=== PATIENT | female | born 1945 | race Caucasian/White ===

== ENCOUNTER 2016-12-04 12:46 | Inpatient (IN) ==
[2016-12-04] MEDS ORDERED: MORPHINE 2 MG/1 ML SYRINGE IV STA ×2 (13:22→14:19)
[2016-12-04] MEDS ORDERED: ONDANSETRON 4 MG/2 ML VIAL IV STA (13:22)
[2016-12-04] MEDS ORDERED: MORPHINE 2 MG/1 ML SYRINGE ONE ×2 (13:24→14:26)
[2016-12-04] MEDS ORDERED: ONDANSETRON 4 MG/2 ML VIAL ONE (13:24)
--- NOTE | 2016-12-04 13:29 | XRay Report ---
XR chest 1V portable Indication: Respiratory preoperative evaluation Comparison: None available Findings: The heart and mediastinum are normal in size and configuration. The pulmonary vascularity is normal in caliber. No lung infiltrates, effusions, pneumothorax or other abnormality is demonstrated. Impression: No acute cardiopulmonary findings. PROCEDURE INTERPRETED AT [facility] DEPARTMENT OF RADIOLOGY Final Report Signed by: Dr. Geo Huff
--- NOTE | 2016-12-04 13:31 | XRay Report ---
XR hip 2v w pelvis LT Indication: Pain after falling injury Comparison: None available Findings: There is fracture of the left femoral neck. There is proximal migration of the femur. No other fracture seen. No other acute injury identified. Impression: Femoral neck fracture as described above. PROCEDURE INTERPRETED AT [facility] DEPARTMENT OF RADIOLOGY Final Report Signed by: Dr. Geo Huff
--- NOTE | 2016-12-04 13:42 | Emergency Department Note ---
Antony Lemos Manpreet, am scribing for, and in the presence of, Christian Encinas MD 13:21. Huang Lemos Phillip K, MD, personally performed the services described in this documentation, ascribed by Jose Miguel Hardy in my presence, and it is both accurate and complete [id number] . Arrival - Arrival Chief Complaint: Fall Stated Complaint: fall, left hip pain ED Nursing Triage Note: PT TRIPPED AND FELL LAST NIGHT. C/O LEFT HIP PAIN. SHORTENING NOTED TO LLE. PT UNABLE TO BEAR WEIGHT. FENTANYL GIVEN PER EMS Mode of Arrival: Stretcher Limitations: No Limitations Source: Patient - History of Present Illness HPI Narrative: Pt is a 71 y/o female who presents to the ED s/p tripping over a box and falling last night. The pt c/o left hip and pelvis pain and states he son found her this AM. Pt was given Fentanyl en route to the ED via EMS. No other pains/ complaints reported to the ED. Onset (ago): hour(s) (Last night) Consistency: constant Severity: moderate Quality: aching Allergies/Adverse Reactions: Allergies Allergy/AdvReac Type Severity Reaction Status Date / Time ciprofloxacin [From Cipro] Allergy Unknown/Unable Unverified 12/04/16 12:50 to obtain Home Medications: Home Medications Medication Instructions Recorded Confirmed Type Aspirin EC Tab 81 mg PO DAILY 12/04/16 12/04/16 History Baclofen Tab [Lioresal] 10 mg PO BEDTIME 12/04/16 12/04/16 History FLUoxetine [PROzac] 20 mg PO DAILY 12/04/16 12/04/16 History Furosemide Tab [Lasix Tab] 40 mg PO DAILY 12/04/16 12/04/16 History Pregabalin [Lyrica] 300 mg PO BID 12/04/16 12/04/16 History Tizanidine HCl [Zanaflex] 4 mg PO BID 12/04/16 12/04/16 History Review of System - Review of System 12 point system: reviewed and no additional remarkable complaints except as stated - Review of System Constitutional: Absent: chills, diaphoresis, fever Head/Ears/Nose/Throat: Absent: sore throat Respiratory: Absent: cough, respiratory distress Cardiovascular: Absent: chest pain Gastrointestinal: Absent: abdominal pain, nausea, vomiting Genitourinary female: Absent: dysuria Musculoskeletal: Present: leg pain (Left hip pain), other (Pelvic pain). Absent : back pain Neurological: Absent: headache, weakness Medical,Surgical,& Family Hx - Medical History Endocrine: History of: Diabetes Mellitus (NIDDM) Rheumatology: History of;: Fibromyalgia - Social History Smoking Status: Never smoker Frequency of Alcohol Use: None Type of Drug Use: None Exam Vital Signs: Vital Signs Temperature 98.0 F 12/04/16 12:47 Pulse Rate 98 H 12/04/16 12:47 Respiratory Rate 18 12/04/16 12:47 Blood Pressure 143/87 12/04/16 12:47 O2 Sat by Pulse Oximetry 92 L 12/04/16 12:47 - General General appearance: alert - Head Head exam: Present: atraumatic, normocephalic, normal inspection - Eye Eye exam: Present: normal appearance, PERRL, EOMI - ENT ENT exam: Present: normal exam, normal oropharynx, mucous membranes moist, TM's normal bilaterally - Neck Neck exam: Present: normal inspection, full ROM, trachea midline. Absent: tenderness, thyromegaly - Chest Chest inspection: Present: normal inspection, symmetric chest wall rise. Absent : tenderness - Respiratory Respiratory exam: Present: normal lung sounds bilaterally. Absent: accessory muscle use, respiratory distress - Cardiovascular Cardiovascular exam: Present: regular rate, normal rhythm, normal heart sounds. Absent: murmur, rubs, gallop - Abdominal Exam Abdominal exam: Present: soft, normal bowel sounds. Absent: distention, diminished bowel sounds - Extremities Exam Extremities exam: Absent: normal inspection - Expanded Lower Left Lower Hip/Pelvis exam: Present: external rotation, shortening. Absent: normal inspection, full ROM - Back Exam Back exam: Present: normal inspection, full ROM. Absent: tenderness - Neurological Exam Neurological exam: Present: alert, oriented X3, CN II-XII intact, reflexes normal - Psychiatric Psychiatric exam: Present: normal affect, normal mood - Skin Skin exam: Present: warm, dry, intact, normal color. Absent: pallor Course Course Narrative: Patient discussed with Dr. Nicolas who will repair of the fracture tomorrow. Patient wants her admitted to the hospitalist. Results - Labs CBC & BMP: 12/04/16 13:46 12/04/16 13:46 Lab Results: I have reviewed the patients labs Labs: Laboratory Tests 12/04/16 12/04/16 12/04/16 13:46 13:46 13:46 WBC 13.3 H RBC 4.55 Hgb 13.4 Hct 39.8 MCV 87.5 MCH 30 MCHC 33.7 RDW 15.4 Plt Count 199 MPV 11.1 Neut % (Auto) 80.4 H Lymph % (Auto) 10.8 L Neut # (Auto) 10.7 H Jay # (Auto) 1.0 H INR 1.1 PT Patient/Control Mix 11.2 Circ Anticoag PTT 29.1 Sodium 139 Potassium 4.3 Chloride 104 Carbon Dioxide 29 Anion Gap 10.3 BUN 16 Creatinine 1.00 GFR Calculation 62 BUN/Creatinine Ratio 16.00 Globulin 3.8 H Albumin/Globulin Ratio 1.0 L Laboratory Tests 12/04/16 13:46 Urine pH 7.0 Ur Specific [place] 1.009 Urine Urobilinogen < 2.0 H Urine RBC <1 Urine WBC 1 Hyaline Casts 2 - EKG EKG results: interpreted by ERMD, WNL, sinus rhythm - Diagnostic Findings Procedure: Chest x-ray: report reviewed by me (No acute cardiopulmonary findings.), X-ray: report reviewed by me (X-ray Hip: Femoral neck fracture as described above.) Disposition Clinical Impression: Subcapital fracture of neck of left femur Case discussed with: patient Disposition: Still a Patient Condition: Guarded
[2016-12-04 13:51] LABS: Basophils % 0.2 % (0.0-0.8); Eosinophils % 0.2 % (0.00-10.9); Hematocrit 39.8 VOL% (35.7-47.0); Hemoglobin 13.4 GM/DL (12.0-16.0); Immature Granulocytes % 0.6 %; Immature Granulocytes Absolute 0.08 #; Lymphocytes # 1.4 10*3/uL (1.4-4.0); Lymphocytes % 10.8 % (21.3-54.2); Mean Corpuscular HGB Conc 33.7 GM/DL (32-36); Mean Corpuscular Hemoglobin 30 PG (27-34); Mean Corpuscular Volume 87.5 FL (87-102); Mean Platelet Volume 11.1 FL (9.6-12.0); Monocytes % 7.8 % (1.7-12.7); Neutrophils # 10.7 10*3/uL (1.4-7.4); Neutrophils % 80.4 % (38.7-73.9); Platelet Count 199 T/CUMM (130-400); Red Blood Count 4.55 MC/CUMM (3.8-5.5); Red Cell Distribution Width 15.4 % (9.3-17.3); White Blood Count 13.3 T/CUMM (4-12)
[2016-12-04 14:02] LABS: Apearance,Urine CLEAR (Clear); Bilirubin,Urine Negative (Negative); Blood, Urine Negative (Negative); Glucose,Urine (UA) Negative (Negative); Hyaline Casts,Urine 2 /LPF (0-3); Ketones,Urine Negative (Negative); Nitrite,Urine Negative (Negative); Protein,Urine Negative; RBC,Urine <1 /HPF (0-4); Squamous Epithelial Cell,Urine Occasional /HPF (0-10); Urine Color Yellow (Yellow); Urine Specific Gravity 1.009 (1.001-1.035); Urine Urobilinogen < 2.0 EU/DL (0.2-1.0); WBC,Urine 1 /HPF (0-6)
[2016-12-04 14:04] LABS: INR 1.1; PT Patient Result 11.2 SECS; Partial Thromboplastin Time 29.1 SECS (0-40)
[2016-12-04 14:18] LABS: Bilirubin,Total 0.8 MG/DL (0.2-1.0); Calcium 9.7 MG/DL (8.5-10.1); Osmolality,Calculated 277.5 MOS/KG (273-304); Potassium 4.3 MMOL/L (3.5-5.1); Total Protein 7.8 G/DL (6.4-8.3)
--- NOTE | 2016-12-04 14:30 | EKG Report ---
Stationary ECG Study [facility] ER Test Date: 12/04/2016 1:34:26 PM Pat Name: KYLER ADORNO Department: Room: EDREG Gender: F Skid[employer] Runner: : 1945 Requested by: Christian Nugent Order Number: [id number] Reading MD: ADINA SHERIDAN Intervals [place] Rate: 91 P: 29 IN: 171 QRS: 82 QRSD: 109 T: 102 QT: 364 QTc: 413 Interpretive Statements SINUS RHYTHM IVCD Electronically Signed On 12-04-16 20:19:38 CDT by ADINA SHERIDAN [email or web address]
--- NOTE | 2016-12-04 14:34 | Hospitalist History & Physical ---
Assessment and Plan (1) Subcapital fracture of neck of left femur Status: Acute Assessment and plan: due to fall. Orthopedic wants to take to surgery in am Follow recommendations Current Visit: Yes (2) IDDM (insulin dependent diabetes mellitus) Status: Acute Assessment and plan: she will placed on SSC and accu cheks -will start clear liquids -HbA1c level Current Visit: Yes (3) Fibromyalgia Status: Acute Assessment and plan: will manage with home meds Current Visit: Yes (4) Dehydration Status: Acute Assessment and plan: start IVF hydration Current Visit: Yes History of Present Illness Chief complaint: fall resulting in left hip pain History of present illness: Ms. Ariza is a 71 year old female with a history NIDDM, chronic pain , fibromyalgia who lives alone.She was planning to move in with her son so she decided to have a garage sale at her house. While preparing for the sale,she tripped over a box yesterday and fell down resulting in a left hip pain.She denies hitting her head on the floor.She was helped by someone on the chair thinking that the pain would go away. She later realized that she couldn't move and she had to sit up on the chair all night long.She couldnt reach her phone and didnt take anything by mouth. Family members tried to reach her this am to no avail so they drove about 45mins to her house where she was found sitting up on a chair.She denies any nausea, vomiting, no chest pain and chest tightness. EMS gave her Fetanyl en route to the ER. Upon arrival,Xray showed a fracture of the left femoral neck.CXR showed no acute changes. Orthopedic has been consulted and she is being planned for surgery in am.She currently complains of pain around the hip and she looks dry. We will start hydrating her ,continue pain meds and admit her for further care. Home Medications Medication Instructions Recorded Confirmed Type Aspirin EC Tab 81 mg PO DAILY 12/04/16 12/04/16 History Baclofen Tab [Lioresal] 10 mg PO BEDTIME 12/04/16 12/04/16 History FLUoxetine [PROzac] 20 mg PO DAILY 12/04/16 12/04/16 History Furosemide Tab [Lasix Tab] 40 mg PO DAILY 12/04/16 12/04/16 History Pregabalin [Lyrica] 300 mg PO BID 12/04/16 12/04/16 History Tizanidine HCl [Zanaflex] 4 mg PO BID 12/04/16 12/04/16 History Allergies Allergy/AdvReac Type Severity Reaction Status Date / Time ciprofloxacin [From Cipro] Allergy Unknown/Unable Unverified 12/04/16 12:50 to obtain Medical,Surgical,& Family Hx - Medical History Endocrine: History of: Diabetes Mellitus (NIDDM) Rheumatology: History of;: Fibromyalgia - Social History Smoking Status: Never smoker Frequency of Alcohol Use: None Type of Drug Use: None 12 point system: reviewed and no additional remarkable complaints except as stated Exam - Constitutional Vitals: Period Temp Pulse Resp BP Sys/Soto Pulse Ox Last 24 Hr 98.0 F-98.0 F 98-98 18-18 133-143/87-87 92 General appearance: no acute distress, other (dry) - Head Head exam: Present: normal inspection - Respiratory Respiratory exam: Present: clear to auscultation bilaterally - Cardiovascular Cardiovascular exam: Present: regular rate and rhythm - GI/Abdominal GI/Abdominal exam: Present: normal bowel sounds - Extremities Exam Extremities exam: Present: other (left leg deviation) Results - Labs CBC & BMP: 12/04/16 13:46 12/04/16 13:46 Lab Results: I have reviewed the past 24 hour labs
[2016-12-04] MEDS ORDERED: GLUCAGON 1 MG VIAL IM PRN (16:09)
[2016-12-04] MEDS ORDERED: DEXTROSE 50% 25 GM/50 ML SYRINGE IV PRN (16:09)
[2016-12-04] MEDS ORDERED: ONDANSETRON 4 MG/2 ML VIAL IV PRN (16:09)
[2016-12-04] MEDS ORDERED: MORPHINE 2 MG/1 ML SYRINGE IV PRN ×2 (16:09→17:13)
[2016-12-04] MEDS ORDERED: ACETAMINOPHEN 325 MG TABLET PO PRN (16:09)
[2016-12-04] MEDS: SODIUM CHLORIDE 0.9% 1,000 ML IV SCH (16:45)
--- NOTE | 2016-12-04 17:12 | Orthopedic Consult Note ---
History of Present Illness Chief complaint: Left hip pain History of present illness: Ms. Ariza is a 71 year old female who fell last night after getting caught between boxes. She was unable to ambulate and was assisted to a chair last night. Because of persistent pain, her other son and [id number] checked on her and brought her to the emergency room. She has not had any previous history of hip problems. 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 She has received injections in these locations in the past. She has had left foot reconstructive surgery for a stress fracture in the past. She denies any other injury or new numbness or tingling. Left lower extremity shortened and externally rotated. She can flex extend her toes and ankle. Previous incisions are well-healed and faint. She has a palpable osteophyte over her medial midfoot. She has palpable pulses. Radiographs AP pelvis and AP lateral left hip demonstrate a displaced femoral neck fracture. Impression: Left displaced femoral neck fracture Plan: I discussed operative options which include total hip replacement versus hemiarthroplasty. They wish to pursue a total hip arthroplasty. Risks include but not limited to infection, bleeding, anesthesia, loosening, wear, dislocation , leg length discrepancy, need for further operations, thromboembolic event, , etc. We will plan proceeding in the morning. Home Medications Medication Instructions Recorded Confirmed Type Aspirin EC Tab 81 mg PO DAILY 12/04/16 12/04/16 History Baclofen Tab [Lioresal] 10 mg PO BEDTIME 12/04/16 12/04/16 History FLUoxetine [PROzac] 20 mg PO DAILY 12/04/16 12/04/16 History Furosemide Tab [Lasix Tab] 40 mg PO DAILY 12/04/16 12/04/16 History Pregabalin [Lyrica] 300 mg PO BID 12/04/16 12/04/16 History Tizanidine HCl [Zanaflex] 4 mg PO BID 12/04/16 12/04/16 History Allergies Allergy/AdvReac Type Severity Reaction Status Date / Time ciprofloxacin [From Cipro] Allergy Unknown/Unable Unverified 12/04/16 12:50 to obtain 12 point system: reviewed and no additional remarkable complaints except as stated Medical,Surgical,& Family Hx - Medical History Endocrine: History of: Diabetes Mellitus (NIDDM) Rheumatology: History of;: Fibromyalgia - Surgical History HEENT Surgeries: Surgical HX of: Tonsilectomy & Adenoidectomy Abdominal Surgeries: Surgical HX of: Cholecystectomy Reproductive Surgeries: Surgical HX of;: Hysterectomy Orthopedic Surgeries: Surgical HX of;: Orthopedic Surgery (Left rotator cuff repair) - Family History Family History: Reports;: Family Cancer, Family Diabetes, Family Heart Disease - Social History Smoking Status: Current every day smoker Frequency of Alcohol Use: None Type of Drug Use: None Exam - Constitutional Vitals: Period Temp Pulse Resp BP Sys/Soto Pulse Ox Last 24 Hr 98.0 F-98.3 F 92-98 18-20 114-143/73-87 92-97 Results - Labs CBC & BMP: 12/04/16 13:46 12/04/16 13:46 Assessment and Plan (1) Subcapital fracture of neck of left femur Status: Acute Current Visit: Yes Qualifiers: Encounter type: initial encounter Fracture type: closed Qualified Code(s) : S72.012A - Unspecified intracapsular fracture of left femur, initial encounter for closed fracture
[2016-12-04 17:43] LABS: Albumin 3.8 G/DL (3.4-5.0); Bilirubin,Total 1.4 MG/DL (0.2-1.0); Calcium 9.4 MG/DL (8.5-10.1); Osmolality,Calculated 276.5 MOS/KG (273-304); Potassium 4.1 MMOL/L (3.5-5.1); Thyroid Stimulating Hormone 0.671 uIU/ml (0.358-3.74); Total Protein 7.3 G/DL (6.4-8.3)
[2016-12-04 17:44] LABS: Apearance,Urine CLEAR (Clear); Bilirubin,Urine Negative (Negative); Blood, Urine Negative (Negative); Glucose,Urine (UA) Negative (Negative); Ketones,Urine Negative (Negative); Nitrite,Urine Negative (Negative); Protein,Urine Negative; RBC,Urine 1 /HPF (0-4); Squamous Epithelial Cell,Urine Occasional /HPF (0-10); Urine Color Yellow (Yellow); Urine Specific Gravity 1.009 (1.001-1.035); Urine Urobilinogen < 2.0 EU/DL (0.2-1.0); WBC,Urine 1 /HPF (0-6)
[2016-12-04] MEDS: INSULIN REGULAR 100 UNIT/ML SUBCUT SCH (18:46)
[2016-12-04] MEDS: MORPHINE 2 MG/1 ML SYRINGE IV PRN (21:14)
[2016-12-05] MEDS: INSULIN REGULAR 100 UNIT/ML SUBCUT SCH ×4 (00:55→18:33)
[2016-12-05] MEDS: MORPHINE 2 MG/1 ML SYRINGE IV PRN ×2 (03:03→21:24)
[2016-12-05] MEDS: SODIUM CHLORIDE 0.9% 1,000 ML IV SCH (05:00)
[2016-12-05 05:20] LABS: Basophils % 0.4 % (0.0-0.8); Eosinophils # 0.1 10*3/uL (0.0-0.87); Eosinophils % 1.8 % (0.00-10.9); Hematocrit 34.7 VOL% (35.7-47.0); Hemoglobin 11.2 GM/DL (12.0-16.0); Immature Granulocytes % 0.5 %; Immature Granulocytes Absolute 0.04 #; Lymphocytes % 27.1 % (21.3-54.2); Mean Corpuscular HGB Conc 32.3 GM/DL (32-36); Mean Corpuscular Hemoglobin 29 PG (27-34); Mean Corpuscular Volume 90.4 FL (87-102); Mean Platelet Volume 11.8 FL (9.6-12.0); Monocytes # 0.9 10*3/uL (0.11-0.8); Neutrophils # 4.3 10*3/uL (1.4-7.4); Neutrophils % 58.2 % (38.7-73.9); Platelet Count 171 T/CUMM (130-400); Red Blood Count 3.84 MC/CUMM (3.8-5.5); Red Cell Distribution Width 15.5 % (9.3-17.3); White Blood Count 7.4 T/CUMM (4-12)
[2016-12-05 05:47] LABS: Albumin 3.3 G/DL (3.4-5.0); Bilirubin,Total 0.8 MG/DL (0.2-1.0); Calcium 9.2 MG/DL (8.5-10.1); Osmolality,Calculated 284.1 MOS/KG (273-304); Potassium 4.6 MMOL/L (3.5-5.1); Total Protein 6.5 G/DL (6.4-8.3)
[2016-12-05] MEDS ORDERED: VANCOMYCIN INJ 1,000 MG in SODIUM CHLORIDE 0.9% 250 ML IV ONE (06:00)
[2016-12-05] MEDS ORDERED: ceFAZolin 2,000 MG in PREMIX 1 EACH IV ONE (06:00)
--- NOTE | 2016-12-05 07:37 | Orthopedic Progress Note ---
Assessment and Plan (1) Subcapital fracture of neck of left femur Status: Acute Current Visit: Yes Qualifiers: Encounter type: initial encounter Fracture type: closed Qualified Code(s) : S72.012A - Unspecified intracapsular fracture of left femur, initial encounter for closed fracture Orthopedics - Subjective Interval history: Ms. Ariza is more comfortable this morning. She still complaining of left inguinal pain. She is also requesting a sleeper. Exam left lower extremity is unchanged. The limb is shortened and externally rotated. She can flex extend her toes and ankles. Sensation is grossly intact light touch. All questions were answered. Proceed with a left total hip arthroplasty. Exam - Constitutional Vitals: Period Temp Pulse Resp BP Sys/Soto Pulse Ox Last 24 Hr 96.3 F-98.3 F 85-104 18-20 91-143/57-87 91-97 Results - Labs CBC & BMP: 12/05/16 04:17 12/05/16 04:16 Quality Measures - VTE Contraindication to Pharmacological VTE Prophylaxis: High Risk of Bleeding
[2016-12-05] MEDS ORDERED: TRANEXAMIC ACID 1,000 MG/10 ML VIAL IV ONE (08:10)
[2016-12-05] MEDS ORDERED: PROPOFOL 200 MG/20 ML VIAL IV ONE ×2 (08:10→14:43)
[2016-12-05] MEDS ORDERED: LIDOCAINE 2% 5 ML VIAL ONE (08:10)
[2016-12-05] MEDS ORDERED: MAGNESIUM HYDROXIDE SUSP 30 ML UDCUP PO PRN (08:39)
--- NOTE | 2016-12-05 08:42 | Operative Note ---
Procedure: DIAGNOSIS: Left displaced femoral neck fracture. Degenerative tendinopathy gluteus medius PROCEDURE: Left total hip arthroplasty (CPT#02961) SURGEON: Maria Isabel ANESTHESIA: Spinal PROCEDURE and FINDINGS: After adequate anesthesia was induced, the patient was placed in lateral decubitus position. Left lower extremities prepped and draped in usual sterile fashion. Posteriolateral approach to the hip was made. Skin, subcutaneous tissue and deep fascia was incised longitudinally. Gluteus josef muscle belly was split in line with its fibers. Her gluteus medius tendon demonstrated degenerative changes with fraying and enthesophytes off of the greater trochanter. Piriformis, external rotators and capsule were taken down as a single layer as an inverted L shaped capsulotomy. Hip was dislocated. Templated femoral neck cut was made. Acetabulum was prepared by sequentially reaming to 49 mm. A 50 mm Continuum acetabular shell was press- fit with excellent stability. 1 6.5 millimeter screw was placed with an excellent bite. 32 mm elevated rim longevity liner was placed with a dome hole plug. Femur was prepared sequentially with the box osteotome, canal finder and sequential broaches to 14. Components were trialed. A size 14 Versys Advocate stem was cemented in place using Palacos cement and modern cementing techniques. A distal centralizer and cement restrictor were used. A 32+3.5 mm head was placed. The component was stable posteriorly and anteriorly. Capsule was repaired with #5 Tycron suture to the greater trochanter. Deep fascia was closed with 0 Vicryl [id number] suture. Subcutaneous tissue was closed deep with a 2-0 Vicryl runner and superficially with 3-0 interrupted buried sutures. Skin was closed with nitin. Bacitracin and a sterile occlusive dressing was applied. Surgeon / Physician: Shane Nicolas Jr. Results - Labs CBC & BMP: 12/05/16 04:17 12/05/16 04:16 Discharge Plan - Discharge Medications No Action Baclofen Tab [Lioresal] 10 mg PO BEDTIME Pregabalin [Lyrica] 300 mg PO BID FLUoxetine [PROzac] 20 mg PO DAILY Aspirin EC Tab 81 mg PO DAILY Furosemide Tab [Lasix Tab] 40 mg PO DAILY Tizanidine HCl [Zanaflex] 4 mg PO BID - Follow Up or Referral - Forms/Instructions
[2016-12-05] MEDS: DOCUSATE SODIUM 100 MG CAPSULE PO SCH ×2 (09:00→21:27)
[2016-12-05] MEDS: tiZANidine 4 MG TABLET PO SCH ×2 (09:00→21:27)
[2016-12-05] MEDS: LACTATED RINGERS 1,000 ML IV SCH ×3 (09:00→22:04)
[2016-12-05] MEDS: PREGABALIN 100 MG CAPSULE PO SCH ×2 (09:00→21:26)
[2016-12-05] MEDS ORDERED: BALANCED SALT IRRIG SOLN 15 ML BOTTLE ONE (11:48)
--- NOTE | 2016-12-05 13:27 | Hospitalist Progress Note ---
Assessment and Plan (1) S/P total hip arthroplasty Status: Acute Assessment and plan: The patient has had total hip arthroplasty on the left after fracture. There are no apparent surgical complications noted. We will recheck electrolytes and CBC in the morning. Current Visit: Yes Qualifiers: Laterality: left Qualified Code(s): Z96.642 - Presence of left artificial hip joint (2) Subcapital fracture of neck of left femur Status: Acute Current Visit: Yes Qualifiers: Encounter type: initial encounter Fracture type: closed Qualified Code(s) : S72.012A - Unspecified intracapsular fracture of left femur, initial encounter for closed fracture Hospitalist: Subjective Interval history: The patient has returned from surgery. The patient had left total hip arthroplasty on account of left hip fracture. There were no apparent surgical complications. Exam - Constitutional Vitals: Period Temp Pulse Resp BP Sys/Soto Pulse Ox Last 24 Hr 96.3 F-98.6 F 82-104 16-20 90-119/55-82 91-100 General appearance: mild distress - Respiratory Respiratory exam: Present: clear to auscultation bilaterally - Cardiovascular Cardiovascular exam: Present: regular rate and rhythm Results - Labs CBC & BMP: 12/05/16 04:17 12/05/16 04:16 Lab Results: I have reviewed the past 24 hour labs Quality Measures - VTE Contraindication to Pharmacological VTE Prophylaxis: High Risk of Bleeding
--- NOTE | 2016-12-05 13:43 | XRay Report ---
XR hip 1V LT Indication: Hip arthroplasty Comparison: 04 December 2016 Findings: Left hip arthroplasty has been performed and appears within normal limits for positioning. No periprosthetic fracture seen. Impression: Hip arthroplasty as described above. PROCEDURE INTERPRETED AT [facility] DEPARTMENT OF RADIOLOGY Final Report Signed by: Dr. Geo Huff
[2016-12-05] MEDS: ceFAZolin 2,000 MG in PREMIX 1 EACH IV SCH ×2 (14:27→21:23)
[2016-12-05] MEDS: ACETAMINOPHEN 500 MG TABLET PO SCH ×2 (14:28→19:25)
[2016-12-05] MEDS: PANTOPRAZOLE 40 MG TABLET PO SCH (14:29)
[2016-12-05] MEDS: FLUoxetine 20 MG CAPSULE PO SCH (14:29)
[2016-12-05] MEDS: FUROSEMIDE 40 MG TABLET PO SCH (14:29)
[2016-12-05] MEDS ORDERED: MIDAZOLAM 2 MG/2 ML VIAL ONE (14:43)
[2016-12-05] MEDS ORDERED: KETAMINE 500 MG/10 ML VIAL ONE (14:44)
[2016-12-05] MEDS ORDERED: MORPHINE 2 MG/1 ML SYRINGE IV ONE (14:48)
--- NOTE | 2016-12-05 14:53 | Orthopedic Progress Note ---
Assessment and Plan (1) Subcapital fracture of neck of left femur Status: Acute Current Visit: Yes Qualifiers: Encounter type: initial encounter Fracture type: closed Qualified Code(s) : S72.012A - Unspecified intracapsular fracture of left femur, initial encounter for closed fracture Orthopedics - Subjective Interval history: Ms. Ariza is complaining of pain. Ms Ariza has chronic pain and I've been told that she was committed earlier this year for opioid dependence. Her son and [id number] are concerned that she has relapsed and that is a contributing factor to her fall and delay in presentation. Her dressing is clean, dry and intact. Her right lower extremities neurovascularly unchanged. Plan: We will bolus her with 4 mg morphine 1 now. I discussed with the patient that she will have some difficulty with pain. Dr. Dunaway will see her this weekend. Exam - Constitutional Vitals: Period Temp Pulse Resp BP Sys/Soto Pulse Ox Last 24 Hr 96.3 F-98.6 F 82-104 16-20 90-119/55-82 91-100 Results - Labs CBC & BMP: 12/05/16 04:17 12/05/16 04:16 Quality Measures - VTE Contraindication to Pharmacological VTE Prophylaxis: High Risk of Bleeding
--- NOTE | 2016-12-05 15:30 | Anesthesia Post-Op ---
Anesthesia Post OP - Post Ansesthetic Evaluation Patient seen in post op: Yes Resp: within normal limits CV: within normal limits Mental: within normal limits Temp: within normal limits [id number]: within normal limits Nausea and Vomiting: within normal limits Pain: within normal limits
[2016-12-05] MEDS: KETOROLAC 15 MG/1 ML VIAL IV SCH ×2 (17:28→21:25)
[2016-12-05] MEDS: ZALEPLON 5 MG CAPSULE PO PRN (21:27)
[2016-12-05] MEDS: BACLOFEN 10 MG TABLET PO SCH (21:27)
[2016-12-06] MEDS: ACETAMINOPHEN 500 MG TABLET PO SCH ×2 (00:37→05:59)
[2016-12-06] MEDS: INSULIN REGULAR 100 UNIT/ML SUBCUT SCH ×4 (00:38→18:58)
[2016-12-06] MEDS: FONDAPARINUX 2.5 MG/0.5 ML SYRINGE SUBCUT SCH ×2 (02:28→03:35)
[2016-12-06] MEDS: KETOROLAC 15 MG/1 ML VIAL IV SCH ×2 (02:28→10:05)
[2016-12-06 03:28] LABS: Basophils % 0.2 % (0.0-0.8); Eosinophils # 0.1 10*3/uL (0.0-0.87); Eosinophils % 1.2 % (0.00-10.9); Hematocrit 30.5 VOL% (35.7-47.0); Hemoglobin 9.9 GM/DL (12.0-16.0); Immature Granulocytes % 0.8 %; Immature Granulocytes Absolute 0.08 #; Lymphocytes # 1.7 10*3/uL (1.4-4.0); Lymphocytes % 16.8 % (21.3-54.2); Mean Corpuscular HGB Conc 32.5 GM/DL (32-36); Mean Corpuscular Hemoglobin 29 PG (27-34); Mean Corpuscular Volume 89.4 FL (87-102); Mean Platelet Volume 11.9 FL (9.6-12.0); Monocytes % 9.6 % (1.7-12.7); Neutrophils # 7.2 10*3/uL (1.4-7.4); Neutrophils % 71.4 % (38.7-73.9); Platelet Count 162 T/CUMM (130-400); Red Blood Count 3.41 MC/CUMM (3.8-5.5); Red Cell Distribution Width 15.3 % (9.3-17.3)
[2016-12-06 03:43] LABS: Magnesium 2.1 MG/DL (1.8-2.4); Osmolality,Calculated 280.4 MOS/KG (273-304)
[2016-12-06 03:47] LABS: Calcium 8.8 MG/DL (8.5-10.1); Osmolality,Calculated 283.3 MOS/KG (273-304)
[2016-12-06] MEDS: LACTATED RINGERS 1,000 ML IV SCH ×3 (06:32→21:29)
[2016-12-06] MEDS ORDERED: DEXTROSE 50% 25 GM/50 ML SYRINGE IV PRN (07:43)
[2016-12-06] MEDS ORDERED: GLUCAGON 1 MG VIAL IM PRN (07:43)
--- NOTE | 2016-12-06 08:09 | Orthopedic Progress Note ---
Orthopedics - Subjective Interval history: Somnolent. Oned day postop left total hip for subcapital femoral neck fx Stable. Dressing clean and dry lab: reviewed. Rec: No change in previously placed orthopaedic orders Exam - Constitutional Vitals: Period Temp Pulse Resp BP Sys/Soto Pulse Ox Last 24 Hr 97.1 F-98.6 F 82-117 16-20 79-136/50-82 92-100 Results - Labs CBC & BMP: 12/06/16 02:47 12/06/16 02:47 Quality Measures - VTE Contraindication to Pharmacological VTE Prophylaxis: High Risk of Bleeding
[2016-12-06] MEDS: DOCUSATE SODIUM 100 MG CAPSULE PO SCH ×2 (08:38→21:28)
[2016-12-06] MEDS: FUROSEMIDE 40 MG TABLET PO SCH (08:38)
[2016-12-06] MEDS: FLUoxetine 20 MG CAPSULE PO SCH (08:39)
[2016-12-06] MEDS: tiZANidine 4 MG TABLET PO SCH ×2 (08:39→21:28)
[2016-12-06] MEDS: PREGABALIN 100 MG CAPSULE PO SCH ×2 (08:39→21:27)
[2016-12-06] MEDS: PANTOPRAZOLE 40 MG TABLET PO SCH (08:39)
[2016-12-06] MEDS ORDERED: KETOROLAC 15 MG/1 ML VIAL IV SCH (10:00)
--- NOTE | 2016-12-06 10:51 | Hospitalist Progress Note ---
Assessment and Plan (1) S/P total hip arthroplasty Status: Acute Assessment and plan: The patient has had total hip arthroplasty on the left after fracture. There are no apparent surgical complications noted. We will recheck electrolytes and CBC in the morning. Current Visit: Yes Qualifiers: Laterality: left Qualified Code(s): Z96.642 - Presence of left artificial hip joint (2) Subcapital fracture of neck of left femur Status: Acute Current Visit: Yes Qualifiers: Encounter type: initial encounter Fracture type: closed Qualified Code(s) : S72.012A - Unspecified intracapsular fracture of left femur, initial encounter for closed fracture Hospitalist: Subjective Interval history: The patient is on standard postoperative pathway. There were no new symptoms today. The patient denies angina or shortness of breath. Exam - Constitutional Vitals: Period Temp Pulse Resp BP Sys/Soto Pulse Ox Last 24 Hr 97.1 F-98.6 F 82-117 16-20 79-136/50-82 92-100 General appearance: no acute distress - Respiratory Respiratory exam: Present: clear to auscultation bilaterally - Cardiovascular Cardiovascular exam: Present: regular rate and rhythm - GI/Abdominal GI/Abdominal exam: Present: normal bowel sounds Results - Labs CBC & BMP: 12/06/16 02:47 12/06/16 02:47 Lab Results: I have reviewed the past 24 hour labs Quality Measures - VTE Contraindication to Pharmacological VTE Prophylaxis: High Risk of Bleeding
[2016-12-06] MEDS ORDERED: SODIUM CHLORIDE 0.9% 500 ML IV ONE (14:08)
[2016-12-06 15:47] LABS: Hematocrit 26.1 VOL% (35.7-47.0); Hemoglobin 8.5 GM/DL (12.0-16.0)
[2016-12-06] MEDS: BACLOFEN 10 MG TABLET PO SCH (21:28)
[2016-12-07] MEDS: INSULIN REGULAR 100 UNIT/ML SUBCUT SCH ×4 (00:50→18:48)
[2016-12-07] MEDS: LACTATED RINGERS 1,000 ML IV SCH ×4 (03:00→23:23)
[2016-12-07 03:17] LABS: Basophils % 0.2 % (0.0-0.8); Eosinophils # 0.2 10*3/uL (0.0-0.87); Eosinophils % 2.4 % (0.00-10.9); Hematocrit 23.4 VOL% (35.7-47.0); Hemoglobin 7.7 GM/DL (12.0-16.0); Immature Granulocytes % 0.4 %; Immature Granulocytes Absolute 0.04 #; Lymphocytes # 1.9 10*3/uL (1.4-4.0); Lymphocytes % 20.4 % (21.3-54.2); Mean Corpuscular HGB Conc 32.9 GM/DL (32-36); Mean Corpuscular Hemoglobin 29 PG (27-34); Mean Corpuscular Volume 89.3 FL (87-102); Monocytes # 1.1 10*3/uL (0.11-0.8); Monocytes % 11.4 % (1.7-12.7); Neutrophils % 65.2 % (38.7-73.9); Platelet Count 127 T/CUMM (130-400); Red Blood Count 2.62 MC/CUMM (3.8-5.5); Red Cell Distribution Width 15.2 % (9.3-17.3); White Blood Count 9.3 T/CUMM (4-12)
[2016-12-07] MEDS: FONDAPARINUX 2.5 MG/0.5 ML SYRINGE SUBCUT SCH (03:20)
[2016-12-07 03:45] LABS: Magnesium 1.8 MG/DL (1.8-2.4); Osmolality,Calculated 284.3 MOS/KG (273-304); Potassium 3.8 MMOL/L (3.5-5.1)
[2016-12-07 04:36] LABS: Platelet Estimate Normal
[2016-12-07] MEDS: FLUoxetine 20 MG CAPSULE PO SCH (09:53)
[2016-12-07] MEDS: PREGABALIN 100 MG CAPSULE PO SCH ×2 (09:53→22:31)
[2016-12-07] MEDS: PANTOPRAZOLE 40 MG TABLET PO SCH (09:53)
[2016-12-07] MEDS: DOCUSATE SODIUM 100 MG CAPSULE PO SCH ×2 (09:53→22:31)
[2016-12-07] MEDS: tiZANidine 4 MG TABLET PO SCH ×2 (09:54→22:32)
--- NOTE | 2016-12-07 10:25 | Orthopedic Progress Note ---
Orthopedics - Subjective Interval history: She is postoperative day 2 for left total hip replacement for treatment of a displaced left femoral neck fracture. The patient is alert and oriented. Pain is under control. There has been a significant decrease in her hematocrit. I am in touch with Dr. Gonzalez. He is going to go ahead and order 2 units of packed red blood cells. Recommendations: 1 continue same orthopedic orders. 2. Dr. Gonzalezis handling her blood transfusion Exam - Constitutional Vitals: Period Temp Pulse Resp BP Sys/Soto Pulse Ox Last 24 Hr 97.5 F-99.8 F 71-100 18-18 75-109/31-55 85-95 Results - Labs CBC & BMP: 12/07/16 02:23 12/07/16 02:23 Quality Measures - VTE Contraindication to Pharmacological VTE Prophylaxis: High Risk of Bleeding
--- NOTE | 2016-12-07 12:07 | Hospitalist Progress Note ---
Assessment and Plan (1) S/P total hip arthroplasty Status: Acute Assessment and plan: The patient has had total hip arthroplasty on the left after fracture. There are no apparent surgical complications noted. The patient will have 2 units packed red blood cell transfusion today we will recheck laboratories tomorrow. She seems ready for transfer to [facility]. Current Visit: Yes Qualifiers: Laterality: left Qualified Code(s): Z96.642 - Presence of left artificial hip joint (2) Subcapital fracture of neck of left femur Status: Acute Current Visit: Yes Qualifiers: Encounter type: initial encounter Fracture type: closed Qualified Code(s) : S72.012A - Unspecified intracapsular fracture of left femur, initial encounter for closed fracture Hospitalist: Subjective Interval history: This is a 71-year-old lady we admitted after left hip fracture. The surgery has been uneventful and the patient wishes to go to [facility] rehab. The patient required transfusion on Thursday. Exam - Constitutional Vitals: Period Temp Pulse Resp BP Sys/Soto Pulse Ox Last 24 Hr 97.5 F-99.8 F 71-100 18-18 82-109/31-55 85-95 General appearance: no acute distress - Respiratory Respiratory exam: Present: clear to auscultation bilaterally - Cardiovascular Cardiovascular exam: Present: regular rate and rhythm - GI/Abdominal GI/Abdominal exam: Present: normal bowel sounds Results - Labs CBC & BMP: 12/07/16 02:23 12/07/16 02:23 Lab Results: I have reviewed the past 24 hour labs Quality Measures - VTE Contraindication to Pharmacological VTE Prophylaxis: High Risk of Bleeding
[2016-12-07] MEDS: SODIUM CHLORIDE 0.9% 250 ML IV PRN ×2 (17:45→21:19)
[2016-12-07] MEDS: BACLOFEN 10 MG TABLET PO SCH (22:32)
[2016-12-08] MEDS: INSULIN REGULAR 100 UNIT/ML SUBCUT SCH ×4 (00:22→18:07)
[2016-12-08] MEDS: FONDAPARINUX 2.5 MG/0.5 ML SYRINGE SUBCUT SCH (03:49)
[2016-12-08 04:53] LABS: Basophils % 0.5 % (0.0-0.8); Eosinophils # 0.3 10*3/uL (0.0-0.87); Eosinophils % 2.9 % (0.00-10.9); Hematocrit 27.2 VOL% (35.7-47.0); Immature Granulocytes % 0.6 %; Immature Granulocytes Absolute 0.05 #; Lymphocytes # 1.9 10*3/uL (1.4-4.0); Lymphocytes % 22.2 % (21.3-54.2); Mean Corpuscular HGB Conc 33.1 GM/DL (32-36); Mean Corpuscular Hemoglobin 29 PG (27-34); Mean Corpuscular Volume 88.6 FL (87-102); Mean Platelet Volume 11.6 FL (9.6-12.0); Monocytes % 11.4 % (1.7-12.7); Neutrophils # 5.3 10*3/uL (1.4-7.4); Neutrophils % 62.4 % (38.7-73.9); Platelet Count 149 T/CUMM (130-400); Red Blood Count 3.07 MC/CUMM (3.8-5.5); Red Cell Distribution Width 15.2 % (9.3-17.3); White Blood Count 8.5 T/CUMM (4-12)
[2016-12-08 05:28] LABS: Calcium 8.1 MG/DL (8.5-10.1); Magnesium 1.9 MG/DL (1.8-2.4); Osmolality,Calculated 281.4 MOS/KG (273-304)
[2016-12-08 06:12] LABS: Anisocytosis 2+; Eosinophils 4 % (0-10); Lymphocytes 22 % (20-55); Macrocytosis 2+; Platelet Estimate Adequate; Polychromasia 1+; Segmented Neutrophils 64 % (50-85); Total Cells Counted 100
--- NOTE | 2016-12-08 08:51 | Orthopedic Progress Note ---
Assessment and Plan (1) Subcapital fracture of neck of left femur Status: Acute Current Visit: Yes Qualifiers: Encounter type: initial encounter Fracture type: closed Qualified Code(s) : S72.012A - Unspecified intracapsular fracture of left femur, initial encounter for closed fracture Orthopedics - Subjective Interval history: Ms. Ariza feels significantly better. She has been able to walk in the room a short distance. Her dressing is clean, dry and intact. Left lower extremities neurovascularly unchanged. Plan: May be discharged to [facility] at any point from my standpoint. Posterior hip precautions for 3 months. Daily dry dressing changes. Arrange for walker and bedside commode for home use. Wear ANISH hose for 1 month. Follow-up appointment in 4 weeks. Discontinue nitin and Steri-Strip wound on December 17, 2016. Prescription for Nutrioso 7.5 was written. Stop Arixtra when discharged from [facility]. Resume aspirin 81 mg then. Exam - Constitutional Vitals: Period Temp Pulse Resp BP Sys/Soto Pulse Ox Last 24 Hr 97.1 F-99.9 F 71-91 18-20 85-119/46-69 91-98 Results - Labs CBC & BMP: 12/08/16 04:21 12/08/16 04:21 Quality Measures - VTE Contraindication to Pharmacological VTE Prophylaxis: High Risk of Bleeding Specialty Discharge - Follow Up or Referrals Follow up with: Shane Nicolas Jr., MD [Physician] - 01/07/17 8:45 am
[2016-12-08] MEDS: DOCUSATE SODIUM 100 MG CAPSULE PO SCH ×2 (09:10→20:06)
[2016-12-08] MEDS: FLUoxetine 20 MG CAPSULE PO SCH (09:10)
[2016-12-08] MEDS: PREGABALIN 100 MG CAPSULE PO SCH ×2 (09:10→20:06)
[2016-12-08] MEDS: tiZANidine 4 MG TABLET PO SCH ×2 (09:10→20:06)
[2016-12-08] MEDS: PANTOPRAZOLE 40 MG TABLET PO SCH (09:11)
[2016-12-08] MEDS ORDERED: BISACODYL 5 MG TABLET PO ONE (09:30)
[2016-12-08] MEDS ORDERED: POLYETHYLENE GLYCOL POWDER 255 GM BOTTLE PO ONE (09:31)
--- NOTE | 2016-12-08 09:57 | Discharge Summary ---
Hospital Course - Hospital Course Hospital Course: Ms. Ariza is a 71 year old female with a history NIDDM, chronic pain , fibromyalgia tripped over a box yesterday and sustained left femur subcapital fracture. Dr. Nicolas did a total left hip arthroplasty on December 05, 2016. Patient tolerated surgery well. She will be transferred to [facility] today. She has chronic problems with constipation and usually takes 20 mg of Dulcolax as needed as needed. Patient's hemoglobin A1c was 6.7 and blood sugars are controlled without medication. Patient will stay on Arixtra until discharge for [facility] rehab. Once discharged from [facility] rehab patient to resume her 81 mg aspirin. Discharged to [facility] today. - Time spent with patient Time with patient DS: Greater than 30 minutes (45 minutes) Specialty Discharge - Follow Up or Referrals Follow up with: Shane Nicolas Jr., MD [Physician] - 01/07/17 8:45 am Discharge Plan - Discharge Data Disposition: Disch/Xfer- Rehab Fac Condition at Discharge: Stable Discharge Diet: diabetic diet Activity: as per physical therapy Hygiene: no restrictions - Discharge Medications New Dextrose 50% [D50] 25 gm IV PRN PRN syringe PRN Reason: Hypoglycemia with IV access Glucagon 1 mg IM PRN PRN vial PRN Reason: Hypoglycemia w/o IV access HYDROcodone/ACETAMIN 7.5-325 [[place] 7.5-325] 2 tablet PO Q4H PRN tablet PRN Reason: Pain Moderate (4-7) Insulin Regular [HumuLIN R] See Protocol SUBCUT Q6HR unit Magnesium Hydroxide Susp [Milk of Magnesia] 30 ml PO Q6H PRN PRN Reason: Constipation Pantoprazole Tab [Protonix Tab] 40 mg PO DAILY tablet Bisacodyl Tab [Dulcolax Tab] 20 mg PO DAILY PRN #30 tablet PRN Reason: Constipation Acetaminophen Tab [Tylenol Tab] 325 mg PO Q4H PRN tablet PRN Reason: fever, headache/body aches Fondaparinux [Arixtra] 2.5 mg SUBCUT Q24H syringe HYDROcodone/ACETAMIN 7.5-325 [[place] 7.5-325] 1 tablet PO Q4H PRN tablet PRN Reason: Pain Moderate (4-7) Continue Baclofen Tab [Lioresal] 10 mg PO BEDTIME Pregabalin [Lyrica] 300 mg PO BID FLUoxetine [PROzac] 20 mg PO DAILY Furosemide Tab [Lasix Tab] 40 mg PO DAILY Tizanidine HCl [Zanaflex] 4 mg PO BID Discontinued Aspirin EC Tab 81 mg PO DAILY - Follow Up or Referral Follow Up: Shane Nicolas Jr., MD [Physician] - 01/07/17 8:45 am - Forms/Instructions Additional Discharge Instructions: Resume aspirin 81 mg p.o. daily when discharged from [facility]. Just continue Arixtra when discharged from [facility] Exam - Constitutional Vitals: Period Temp Pulse Resp BP Sys/Soto Pulse Ox Last 24 Hr 97.1 F-99.9 F 71-91 18-20 85-119/46-69 91-98 General appearance: no acute distress, over weight - Respiratory Respiratory exam: Present: clear to auscultation bilaterally. Absent: rhonchi, wheezes - Cardiovascular Cardiovascular exam: Present: regular rate and rhythm. Absent: systolic murmur - GI/Abdominal GI/Abdominal exam: Present: normal bowel sounds, soft. Absent: tenderness Discharge Results Procedures and tests throughout hospitalization: Pending Orders 12/04/16 16:28 Blood Culture Routine Labs on day of discharge: Labs from last 24 hours 12/08/16 12/08/16 12/08/16 05:27 04:21 04:21 WBC 8.5 RBC 3.07 L Hgb 9.0 L Hct 27.2 L MCV 88.6 MCH 29 MCHC 33.1 RDW 15.2 Plt Count 149 MPV 11.6 Neut % (Auto) 62.4 Lymph % (Auto) 22.2 [place] % (Auto) 11.4 Eos % (Auto) 2.9 Baso % (Auto) 0.5 Neut # (Auto) 5.3 Lymph # (Auto) 1.9 [place] # (Auto) 1.0 H Eos # (Auto) 0.3 Baso # (Auto) 0.0 Total Counted 100 Immature Gran % 0.6 Nucleated RBC % 0.0 Immature Gran # 0.05 Segmented Neutrophils 64 Lymphocytes 22 Monocytes 10 Eosinophils 4 Nucleated RBCs # 0.00 Platelet Estimate Adequate Immature Plt Fraction 0.0 Polychromasia 1+ Anisocytosis 2+ Macrocytosis 2+ Sodium 140 Potassium 4.0 Chloride 107 Carbon Dioxide 26 Anion Gap 11.0 BUN 17 Creatinine 0.90 GFR Calculation 72 BUN/Creatinine Ratio 18.00 Glucose 119 H POC Glucose 117 H Calculated Osmolality 281.4 Calcium 8.1 L Magnesium 1.9 Blood Type Antibody Screen Crossmatch 12/07/16 12/07/16 12/07/16 23:15 18:08 10:54 WBC RBC Hgb Hct MCV MCH MCHC RDW Plt Count MPV Neut % (Auto) Lymph % (Auto) [place] % (Auto) Eos % (Auto) Baso % (Auto) Neut # (Auto) Lymph # (Auto) [place] # (Auto) Eos # (Auto) Baso # (Auto) Total Counted Immature Gran % Nucleated RBC % Immature Gran # Segmented Neutrophils Lymphocytes Monocytes Eosinophils Nucleated RBCs # Platelet Estimate Immature Plt Fraction Polychromasia Anisocytosis Macrocytosis Sodium Potassium Chloride Carbon Dioxide Anion Gap BUN Creatinine GFR Calculation BUN/Creatinine Ratio Glucose POC Glucose 171 H 181 H 142 H Calculated Osmolality Calcium Magnesium Blood Type Antibody Screen Crossmatch 12/07/16 02:23 WBC RBC Hgb Hct MCV MCH MCHC RDW Plt Count MPV Neut % (Auto) Lymph % (Auto) [place] % (Auto) Eos % (Auto) Baso % (Auto) Neut # (Auto) Lymph # (Auto) [place] # (Auto) Eos # (Auto) Baso # (Auto) Total Counted Immature Gran % Nucleated RBC % Immature Gran # Segmented Neutrophils Lymphocytes Monocytes Eosinophils Nucleated RBCs # Platelet Estimate Immature Plt Fraction Polychromasia Anisocytosis Macrocytosis Sodium Potassium Chloride Carbon Dioxide Anion Gap BUN Creatinine GFR Calculation BUN/Creatinine Ratio Glucose POC Glucose Calculated Osmolality Calcium Magnesium Blood Type O POSITIVE Antibody Screen Negative Crossmatch See Detail Preliminary micro results at discharge 12/04/16 16:28 Blood Culture - Preliminary Blood No growth at 3 days 12/04/16 16:28 Blood Culture - Preliminary Blood No growth at 3 days DS: Provider Date of admission: 12/04/16 13:54 Primary care physician: . No PCP Attending physician on admission: Yanique Valdivia MD Consults: 12/04/16 16:09 Consult to Physician [CONS] Routine Comment: left hip fracture Consulting Provider: Shane Nicolas Jr. Consulting Provider Notified: Yes When should Consulting Provider be notified: Now Consult to Specialist Group: Orthopedic When should Consulting Provider be notified: Now 12/04/16 16:20 Consult to Pastoral Services [CONS] Routine Comment: Pastoral Screen: Request Production Control Scheduler Visit Grief Over Loss Pastoral Screen Source of Request: Patient 12/05/16 08:39 Consult to Case Mgmt/Social Srvs [CONS] Routine Reason for Case Mgmt/Social Srvs: Rehab Home Health Equipment Consult Comment: Bedside Commode, CPM, Walker Consult to Occupational Therapy [CONS] Routine Reason for Occupational Therapy: Evaluate and Treat Consult Comment: ADL's Consult to Physical Therapy [CONS] Routine Reason for Physical Therapy: Evaluate and Treat Gait Training Start Therapy: Today Consult Comment: wbat, hip precautions Discharging clinician: China Friend MD
[2016-12-08] MEDS: LACTATED RINGERS 1,000 ML IV SCH ×2 (11:17→21:49)
[2016-12-08] MEDS: SODIUM CHLORIDE 0.9% 1,000 ML IV SCH ×3 (12:18→21:50)
[2016-12-08] MEDS ORDERED: MAGNESIUM CITRATE 300 ML BOTTLE PO ONE (16:12)
[2016-12-08] MEDS ORDERED: ONDANSETRON 4 MG TABLET PO PRN (17:41)
[2016-12-08] MEDS: BACLOFEN 10 MG TABLET PO SCH (20:06)
[2016-12-08] MEDS: ZALEPLON 5 MG CAPSULE PO PRN (22:36)
[2016-12-09] MEDS: INSULIN REGULAR 100 UNIT/ML SUBCUT SCH ×2 (00:39→06:53)
[2016-12-09] MEDS: FONDAPARINUX 2.5 MG/0.5 ML SYRINGE SUBCUT SCH (02:59)
[2016-12-09] MEDS: LACTATED RINGERS 1,000 ML IV SCH (02:59)
[2016-12-09 07:10] VITALS: BP 112/69
[2016-12-09] MEDS: PREGABALIN 100 MG CAPSULE PO SCH (08:35)
[2016-12-09] MEDS: DOCUSATE SODIUM 100 MG CAPSULE PO SCH (08:36)
[2016-12-09] MEDS: tiZANidine 4 MG TABLET PO SCH (08:36)
[2016-12-09] MEDS: PANTOPRAZOLE 40 MG TABLET PO SCH (08:36)
[2016-12-09] MEDS: FLUoxetine 20 MG CAPSULE PO SCH (08:36)
--- NOTE | 2016-12-09 12:16 | Pathology Report from [facility] ---
[facility] [place] ACCESSION # : [id number] PATIENT NAME : Kyler Ariza ORDERING DR : RYAN SHABAZZ MD CLINICAL HX: Left displaced femoral neck fracture POST-OP DX: Same SPECIMEN INFO: Left hip bone and tissue GROSS DESCRIPTION: The specimen is received in formalin labeled with the patients name and consists of a fractured femoral head measuring 4.2 x 4.2 x 3.9 cm. The articular surface is predominately smooth, red-avelar and no subchondral eburnation. The area of fracture is shaggy and hemorrhagic. No softening appreciated. Received separately in the container is a portion of femoral neck measuring 3.5 x 2.4 x 1.9 cm. [employer] tissue submitted in one cassette following decalcification. DIAGNOSIS FOR KYLER ARIZA: LEFT HIP BONE AND TISSUE, HEMARARTHROPLASTY HIP REPLACEMENT: Acute hemorrhage consistent with fracture, osteosclerosis. COLLECTED DATE: 12/05/2016 [facility] [place] REPORT DATE: 12/09/2016 ELECTRONICALLY SIGNED BY: Sakina Garcia M.D. 12/09/2016 - 10:33:02 CHINEDU
--- NOTE | 2016-12-09 12:49 | Orthopedic Progress Note ---
Assessment and Plan (1) Subcapital fracture of neck of left femur Status: Acute Qualifiers: Encounter type: initial encounter Fracture type: closed Qualified Code(s) : S72.012A - Unspecified intracapsular fracture of left femur, initial encounter for closed fracture Orthopedics - Subjective Interval history: Ms. Ariza was able to walk in the [place] yesterday. She is noticed continued improvement in her left hip. Dressing clean, dry and intact. Left lower extremities neurovascularly unchanged. Plan: TMR anytime from my standpoint. Exam - Constitutional Vitals: Period Temp Pulse Resp BP Sys/Soto Pulse Ox Last 24 Hr 97.3 F-98.2 F 80-86 18-20 95-143/54-86 91-95 Results - Labs CBC & BMP: 12/08/16 04:21 12/08/16 04:21 Quality Measures - VTE Contraindication to Pharmacological VTE Prophylaxis: High Risk of Bleeding Specialty Discharge - Follow Up or Referrals Follow up with: Shane Nicolas Jr., MD [Physician] - 01/07/17 8:45 am
== END 2016-12-09 11:02 | DRG 470 ==
LOC: EDBD → EDUNIT# → N.ED 12:46 → N.EDINP 13:54 → SUATTDRO 13:54 → N.EDINP 15:19 → N.3E 15:25
PROVIDERS: ADMIT Internal Medicine; ATTEND Internal Medicine

== ENCOUNTER 2019-01-12 10:43 | Observation (INO) ==
[2019-01-12 11:08] LABS: Basophils % 0.1 % (0.0-0.8); Hematocrit 36.9 VOL% (35.7-47.0); Hemoglobin 12.1 GM/DL (12.0-16.0); Immature Granulocytes % 0.7 %; Immature Granulocytes Absolute 0.07 #; Lymphocytes # 1.3 10*3/uL (1.4-4.0); Lymphocytes % 11.7 % (21.3-54.2); Mean Corpuscular HGB Conc 32.8 GM/DL (32-36); Mean Corpuscular Volume 89.6 FL (87-102); Mean Platelet Volume 11.9 FL (9.6-12.0); Monocytes % 8.5 % (1.7-12.7); Platelet Count 215 T/CUMM (130-400); Red Blood Count 4.12 MC/CUMM (3.8-5.5); Red Cell Distribution Width 14.8 % (9.3-17.3); White Blood Count 10.7 T/CUMM (4-12)
[2019-01-12] MEDS ORDERED: SODIUM CHLORIDE 0.9% 1,000 ML IV STA (11:20)
[2019-01-12 11:33] LABS: Alanine Aminotransferase 28 U/L (13-56); Albumin 4.1 G/DL (3.4-5.0); Alkaline Phosphatase 74 U/L (45-117); Aspartate Amino Transferase 23 U/L (0-37); Bilirubin,Total < 0.39 MG/DL (0.2-1.0); Blood Urea Nitrogen 24 MG/DL (7-18); Calcium 9.8 MG/DL (8.5-10.1); Glucose 107 MG/DL (74-106); Osmolality,Calculated 284.3 MOS/KG (273-304)
[2019-01-12 11:51] LABS: Apearance,Urine CLEAR (Clear); Bacteria,Urine Many /HPF (Few); Bilirubin,Urine Negative (Negative); Blood, Urine Small mg/dL (Negative); Glucose,Urine (UA) Negative (Negative); Ketones,Urine 5 mg/dL (Negative); Mucus,Urine Moderate /LPF (Occasional); Nitrite,Urine Positive (Negative); Protein,Urine Negative; RBC,Urine 1 /HPF (0-4); Squamous Epithelial Cell,Urine Occasional /HPF (0-10); Urine Color Yellow (Yellow); Urine Specific Gravity 1.026 (1.001-1.035); Urine Urobilinogen < 2.0 EU/DL (0.2-1.0); WBC,Urine <1 /HPF (0-6)
[2019-01-12 11:55] LABS: Barbiturates Screen,Urine Negative (Negative); Benzodiazepines Screen,Urine Negative (Negative); Cannabinoid Screen,Urine Negative (Negative); Opiate Screen,Urine Positive (Negative); Phencyclidine Screen,Urine Negative (Negative)
[2019-01-12] MEDS ORDERED: GENTAMICIN INJ 80 MG in SODIUM CHLORIDE 0.9% 100 ML IV STA (12:00)
[2019-01-12] MEDS ORDERED: HYDROmorphone 2 MG/1 ML VIAL IV STA (12:00)
[2019-01-12] MEDS ORDERED: ONDANSETRON 4 MG/2 ML VIAL IV STA (12:00)
[2019-01-12] MEDS ORDERED: GENTAMICIN 80 MG/2 ML VIAL ONE (12:02)
[2019-01-12] MEDS ORDERED: ONDANSETRON 4 MG/2 ML VIAL IV PRN (13:14)
[2019-01-12] MEDS ORDERED: GLUCAGON 1 MG VIAL IM PRN (13:14)
[2019-01-12] MEDS ORDERED: DEXTROSE 50% 25 GM/50 ML VIAL IV PRN (13:14)
[2019-01-12] MEDS ORDERED: ALBUTEROL 2.5 MG/3 ML NEB RESP TX PRN (13:41)
[2019-01-12] MEDS ORDERED: MORPHINE 4 MG/1 ML VIAL IV PRN (14:03)
[2019-01-12] MEDS: ACETAMINOPHEN 325 MG TABLET PO PRN ×2 (15:49→22:46)
[2019-01-12] MEDS: SODIUM CHLORIDE 0.9% 1,000 ML IV SCH (15:50)
[2019-01-12] MEDS: INSULIN LISPRO 100 UNIT/ML SUBCUT SCH ×2 (16:54→20:50)
[2019-01-12] MEDS ORDERED: GENTAMICIN INJ 240 MG in SODIUM CHLORIDE 0.9% 100 ML IV ONE (17:00)
[2019-01-12] MEDS: PREGABALIN 100 MG CAPSULE PO SCH (20:10)
[2019-01-12] MEDS ORDERED: ROSUVASTATIN 10 MG TABLET PO SCH (21:00)
[2019-01-12] MEDS ORDERED: NORTRIPTYLINE 25 MG CAPSULE PO SCH (21:00)
[2019-01-13] MEDS: SODIUM CHLORIDE 0.9% 1,000 ML IV SCH (01:42)
[2019-01-13] MEDS: ACETAMINOPHEN 325 MG TABLET PO PRN ×2 (03:57→08:42)
[2019-01-13 04:45] LABS: Basophils % 0.3 % (0.0-0.8); Eosinophils % 0.1 % (0.00-10.9); Hematocrit 35.5 VOL% (35.7-47.0); Hemoglobin 11.4 GM/DL (12.0-16.0); Immature Granulocytes % 0.3 %; Immature Granulocytes Absolute 0.03 #; Lymphocytes # 2.1 10*3/uL (1.4-4.0); Mean Corpuscular HGB Conc 32.1 GM/DL (32-36); Mean Corpuscular Volume 91.7 FL (87-102); Monocytes % 12.5 % (1.7-12.7); Neutrophils % 63.8 % (38.7-73.9); Platelet Count 178 T/CUMM (130-400); Red Blood Count 3.87 MC/CUMM (3.8-5.5); White Blood Count 9.2 T/CUMM (4-12)
[2019-01-13 05:21] LABS: Calcium 8.8 MG/DL (8.5-10.1); Osmolality,Calculated 294.4 MOS/KG (273-304)
[2019-01-13] MEDS: INSULIN LISPRO 100 UNIT/ML SUBCUT SCH ×3 (07:59→16:56)
[2019-01-13] MEDS: PREGABALIN 100 MG CAPSULE PO SCH (08:42)
[2019-01-13] MEDS ORDERED: FUROSEMIDE 40 MG TABLET PO SCH (09:00)
[2019-01-13] MEDS ORDERED: PANTOPRAZOLE 40 MG TABLET PO SCH (09:00)
[2019-01-13] MEDS: METHEN/SOD PHOS/METH BLUE/HYOS TABLET PO SCH ×2 (10:13→16:14)
[2019-01-13] MEDS ORDERED: AZTREONAM 1,000 MG in SYRINGE 1 EACH IV SCH (11:00)
[2019-01-13] MEDS ORDERED: GENTAMICIN INJ 320 MG in SODIUM CHLORIDE 0.9% 100 ML IV SCH (17:00)
[2019-01-13 17:23] VITALS: BP 114/75
== END 2019-01-13 18:24 | disposition home or self-care (01) ==
LOC: EDUNIT# → N.ED 10:43 → N.EDINP 12:55 → INTOOBSV 12:55 → N.EDINP 14:48 → N.5E 15:02
PROVIDERS: ADMIT Internal Medicine; ATTEND Internal Medicine